=== PATIENT | male | born 1955 | race Caucasian/White ===

== ENCOUNTER → 2020-04-02 | Outpatient (CLI) | payer BC, MEDICARE ==
--- NOTE | 2020-04-04 15:17 | XR ---
KUB HISTORY: Calculus of kidney Frontal KUB submitted There are overlying artifacts. Probable vascular calcifications within the pelvis. Overlying bowel ga s may obscure detail. Degenerative disc changes are present visualized spine. IMPRESSION: Nonobstructive bowel gas pattern.
== END | disposition home or self-care (01) ==
LOC: RADXRWHC 08:10
PROVIDERS: ATTEND Urology
DX: N20.0 Calculus of kidney (principal)
CPT/HCPCS: 74018